=== PATIENT | male | born 1985 | race Two or more races ===

== ENCOUNTER 2023-08-03 02:12 | Emergency (ER) | payer BC ==
[~2023-08-03] VITALS: Ht 177.8 cm; Wt 120.4 kg
[2023-08-03 02:16] VITALS: BP 128/78; PULSE 98; TEMP 98.4; O2SAT 95
[2023-08-03] MEDS ORDERED: AMOX-117 PO (03:54)
[2023-08-03] MEDS ORDERED: IBUP-1984 PO (03:54)
[2023-08-03] MEDS: amox tr/potassium clavulanate 875/125mg TAB PO ONE (04:07)
[2023-08-03] MEDS: ibuprofen tablet 400 MG TABLET PO ONE (04:07)
[2023-08-03 04:08] VITALS: RESP 16
== END 2023-08-03 04:10 | disposition home or self-care (01) ==
LOC: ER 02:13
DX: H66.92 Otitis media, unspecified, left ear (principal); Z79.2 Long term (current) use of antibiotics; Z79.1 Long term (current) use of non-steroidal anti-inflammatories (NSAID)
CPT/HCPCS: 99283